=== PATIENT | female | born 1970 | race African-American/Black ===

== ENCOUNTER 2019-12-21 18:43 | Emergency (ER) | payer OTHER ==
[~2019-12-21] VITALS: Ht 165.1 cm; Wt 59.0 kg
[2019-12-21 18:53] VITALS: BP 160/90
[2019-12-21] MEDS ORDERED: TRAMADOL 50MG TABLET PO ONE (19:15)
== END 2019-12-21 20:25 | disposition home or self-care (01) ==
LOC: ER 18:43
DX: S09.8XXA Other specified injuries of head, initial encounter (principal); M79.601 Pain in right arm; V43.52XA Car driver injured in collision with other type car in traffic accident, initial encounter; Y93.89 Activity, other specified; Y92.410 Unspecified street and highway as the place of occurrence of the external cause
CPT/HCPCS: 73090; 81025; 99284